=== PATIENT | female | born 1945 | race Caucasian/White ===

== ENCOUNTER 2017-02-19 03:57 | Outpatient (CLI) | payer MEDICARE, MEDICAID ==
[2017-02-19 06:24] LABS: #Basophils 0.2 thou/uL (0.0-0.2); #Eosinphils 1.5 thou/uL (0.0-0.7); #Lymphocytes 5.1 thou/uL (1.20-3.40); #Monocytes 1.3 thou/uL (0.11-0.59); #Neutrophils 10.4 thou/uL (1.40-6.50); %Basophils 1.3 % (0.0-1.0); %Eosinophils 8.2 % (0.0-10.0); %Lymphocytes 27.5 % (21.0-51.0); %Monocytes 7.2 % (0.0-10.0); %Neutrophils 55.8 % (42.0-75.0); Hemoglobin 11.3 g/dL (12.0-16.0); Mean Corpuscular HGB CONC 32.1 g/dL (32.0-36.0); Mean Corpuscular Hemoglobin 27.5 pg (27.0-31.0); Mean Corpuscular Volume 85.8 fl (81.0-99.0); Mean Platelet Volume 8.3 fL (7.4-10.4); Platelet Count 322 thou/uL (130-400); RBC Distribution Width 14.2 % (11.5-14.5); Red Blood Cell (RBC) Count 4.09 mill/uL (4.20-5.40); White Blood Cell (WBC) Count 18.7 thou/uL (4.8-10.8)
[2017-02-19 06:36] LABS: Hemoglobin A1c 6.2 % (4.0-6.0)
[2017-02-19 06:43] LABS: ALT (SGPT) 26 U/L (8-55); AST (SGOT) 27 U/L (5-34); Albumin 3.5 g/dL (3.4-4.8); Alkaline Phosphatase 72 U/L (40-150); Anion Gap 17 mmol/L (10-20); BUN (Urea Nitrogen) 38 mg/dL (9.8-20.1); Bilirubin, Total 0.2 mg/dL (0.2-1.2); Calc. Creatinine Clearance 0 mL/min (70-130); Calcium 9.4 mg/dL (7.8-10.44); Carbon Dioxide 23 mmol/L (23-31); Cardiac Risk 5.8 (Less than 4.5); Chloride 103 mmol/L (98-107); Cholesterol 187 mg/dl (< 200 Desired); Estimated GFR-MDRD 85; Globulin 3.1 g/dL (2.4-3.5); Glucose 136 mg/dL (83-110); HDL Cholesterol 32 mg/dL (>60 Neg Risk); LDL Cholesterol, Calculated 102 mg/dL; Potassium 4.4 mmol/L (3.5-5.1); Protein, Total 6.6 g/dL (6.0-8.3); Sodium 139 mmol/L (136-145); Triglycerides 263 mg/dL (Less than 150)
== END 2017-02-19 03:58 | disposition home or self-care (01) ==
LOC: BURMANOR 03:57
PROVIDERS: ATTEND Clinical Nurse Specialist Medical-Surgical
DX: E03.9 Hypothyroidism, unspecified (principal); I10 Essential (primary) hypertension; I25.10 Atherosclerotic heart disease of native coronary artery without angina pectoris; E11.8 Type 2 diabetes mellitus with unspecified complications
CPT/HCPCS: 36415; 80053; 80061; 83036; 84443; 85025

== ENCOUNTER 2017-02-26 00:35 | Outpatient (CLI) | payer MEDICARE, MEDICAID ==
[2017-02-26 07:44] LABS: #Basophils 0.2 thou/uL (0.0-0.2); #Eosinphils 1.3 thou/uL (0.0-0.7); #Lymphocytes 4.7 thou/uL (1.20-3.40); #Monocytes 0.6 thou/uL (0.11-0.59); #Neutrophils 5.1 thou/uL (1.40-6.50); %Basophils 1.6 % (0.0-1.0); %Eosinophils 11.2 % (0.0-10.0); %Lymphocytes 39.3 % (21.0-51.0); %Monocytes 5.1 % (0.0-10.0); %Neutrophils 42.8 % (42.0-75.0); Hemoglobin 10.9 g/dL (12.0-16.0); Mean Corpuscular HGB CONC 30.8 g/dL (32.0-36.0); Mean Corpuscular Hemoglobin 26.5 pg (27.0-31.0); Platelet Count 257 thou/uL (130-400); RBC Distribution Width 14.1 % (11.5-14.5); Red Blood Cell (RBC) Count 4.09 mill/uL (4.20-5.40); White Blood Cell (WBC) Count 11.9 thou/uL (4.8-10.8)
== END 2017-02-26 00:36 | disposition home or self-care (01) ==
LOC: BURMANOR 00:35
PROVIDERS: ATTEND Clinical Nurse Specialist Medical-Surgical
DX: I25.10 Atherosclerotic heart disease of native coronary artery without angina pectoris (principal); E11.8 Type 2 diabetes mellitus with unspecified complications; I10 Essential (primary) hypertension
CPT/HCPCS: 36415; 85025

== ENCOUNTER 2017-04-24 21:25 | Emergency (ER) | payer MEDICARE, MEDICAID ==
--- NOTE | 2017-04-24 22:38 | RAD ---
CHEST ONE VIEW: History: Fall, chest injury. FINDINGS: No comparison. The cardiac silhouette is magnified by projection. Pulmonary vasculature is unremarkab le. Mediastinum is midline with aortic calcification. There is no lobar consolidation or evidence of pneumothorax. IMPRESSION: 1. No active cardiopulmonary abnormalities are demonstrated. POS: [facility]
== END 2017-04-25 00:12 | disposition home or self-care (01) ==
LOC: BURERS 21:25
DX: S23.41XA Sprain of ribs, initial encounter (principal); I25.10 Atherosclerotic heart disease of native coronary artery without angina pectoris; E11.9 Type 2 diabetes mellitus without complications; G35 Multiple sclerosis; I10 Essential (primary) hypertension; J45.909 Unspecified asthma, uncomplicated; X50.1XXA Overexertion from prolonged static or awkward postures, initial encounter
CPT/HCPCS: 71010; 94799

== ENCOUNTER 2017-05-02 16:31 | Outpatient (CLI) | payer MEDICARE, MEDICAID ==
--- NOTE | 2017-05-02 20:25 | RAD ---
PORTABLE CHEST 05/02/17 An AP portable film at 1635 is compared with an 04/24/17 study. The heart size is unchanged. There are no congestive findings or pleural effusions. Elevation of the right hemidiaphragm seems chronic. There may be a vague density in the lateral left upper lobe, but I believe it is just overlapping markings with the scapula. This may be an area of scarring. Arteriosc lerotic change is evident. IMPRESSION: No acute thoracic finding. POS: [facility]
--- NOTE | 2017-05-02 20:28 | RAD ---
LEFT RIBS THREE VIEWS 05/02/17 Nondisplaced fractures are seen through the anterolateral aspects of the left sixth, seventh, and eig hth ribs. Other fractures could be present but masked by osteoporosis. There is no sign of pneumothor ax or pleural effusion. There is probably an area of scarring in the lateral left upper lobe. IMPRESSION: Fractures of at least the left sixth, seventh, and eighth ribs. POS: [facility]
--- NOTE | 2017-05-02 20:38 | RAD ---
RIGHT RIBS THREE VIEWS 05/02/17 Fractures appear to be present through the anterolateral portions of the 7th, 8th and probably 9th ri bs. The adjacent right lung is clear. There is no pneumothorax or pleural effusions. The other ribs a ppeared intact, but the patient's osteoporosis could mask other fractures. IMPRESSION: Fractures of the 7th, 8th and 9th ribs anterolaterally. POS: HOME
== END 2017-05-02 16:32 | disposition home or self-care (01) ==
LOC: BURRAD 16:31
PROVIDERS: ATTEND Clinical Nurse Specialist Medical-Surgical
DX: R07.9 Chest pain, unspecified (principal); G89.11 Acute pain due to trauma; S22.41XA Multiple fractures of ribs, right side, initial encounter for closed fracture
CPT/HCPCS: 71010